=== PATIENT | male | born 1965 | race Two or more races ===

== ENCOUNTER 2021-07-28 19:17 | Emergency (ER) | payer SELFPAY ==
[~2021-07-28] VITALS: Ht 170.2 cm; Wt 77.0 kg
[2021-07-28] MEDS ORDERED: TETANUS, DIPHTHERIA, PERTUSSIS VAC/PF 0.5ML (>10YR OLD) IM ONE (20:30)
[2021-07-28] MEDS ORDERED: ACETAMINOPHEN 325MG TABLET PO ONE (20:30)
[2021-07-28] MEDS ORDERED: BACITRACIN ZINC OINT UDPKT TOP ONE (20:30)
[2021-07-28 21:26] LABS: BASOPHILS % 1.2 % (0.0-2.0); EOSINOPHILS % 1.9 % (0.0-5.0); HEMATOCRIT. 39.8 % (42.0-52.0); HEMOGLOBIN. 13.5 g/dL (14.0-18.0); LYMPHOCYTES % 31.8 % (20.0-50.0); MEAN CORPUSCULAR HEMOGLOBIN 28.6 pg (28.0-32.0); MEAN CORPUSCULAR VOLUME 84.4 fL (80.0-94.0); MEAN PLATELET VOLUME 8.5 fl (7.4-10.4); MONOCYTES % 9.9 % (2.0-8.0); NEUTROPHILS % 55.2 % (40.0-76.0); PLATELET 272 x1000/uL (130-400); RED BLOOD CELL COUNT 4.71 mill/uL (4.7-6.1); RED CELL DISTRIBUTION WIDTH 14.5 % (11.6-14.6)
[2021-07-28 21:34] LABS: CHLORIDE 106 mEq/L (98-107)
[2021-07-28] MEDS ORDERED: HALOPERIDOL LACTATE 5MG/ML VIAL IM ONE (23:30)
[2021-07-28] MEDS ORDERED: DIPHENHYDRAMINE 50MG/ML VIAL IM ONE (23:30)
[2021-07-28] MEDS ORDERED: LORAZEPAM 2MG/ML CPJ IM ONE (23:30)
[2021-07-29 00:33] LABS: *AMPHETAMINES SCREEN URINE NEGATIVE (NEGATIVE); *BARBITURATES SCREEN URINE NEGATIVE (NEGATIVE); *BENZODIAZEPINES SCREEN URINE NEGATIVE (NEGATIVE)
[2021-07-29 00:34] LABS: *COCAINE SCREEN URINE NEGATIVE (NEGATIVE); CANNABINOID URINE SCREEN PRESUMTIVE POSITIVE (NEGATIVE); METHADONE URINE SCREEN NEGATIVE (NEGATIVE); OPIATES URINE SCREEN NEGATIVE (NEGATIVE); PHENCYCLIDINE URINE SCREEN NEGATIVE (NEGATIVE)
[2021-07-29] MEDS ORDERED: SODIUM CHLORIDE 0.9% 1,000 ML IV ONE (00:45)
[2021-07-29] MEDS: OLANZAPINE 5MG TABLET PO SCH ×3 (09:59→21:48)
[2021-07-29] MEDS: DIVALPROEX SODIUM 500MG DR TABLET PO SCH ×2 (10:00→17:00)
[2021-07-29] MEDS ORDERED: QUETIAPINE FUMARATE 50MG TABLET PO SCH (21:00)
[2021-07-30] MEDS: DIVALPROEX SODIUM 500MG DR TABLET PO SCH (09:42)
[2021-07-30 13:28] VITALS: BP 110/74
== END 2021-07-30 13:57 | disposition home or self-care (01) ==
LOC: ER 19:17
DX: S09.8XXA Other specified injuries of head, initial encounter (principal); S00.81XA Abrasion of other part of head, initial encounter; R45.850 Homicidal ideations; R45.851 Suicidal ideations; F12.90 Cannabis use, unspecified, uncomplicated; J44.9 Chronic obstructive pulmonary disease, unspecified; F32.9 Major depressive disorder, single episode, unspecified; F20.9 Schizophrenia, unspecified; W22.09XA Striking against other stationary object, initial encounter; Y93.01 Activity, walking, marching and hiking; Y92.9 Unspecified place or not applicable; Z59.00 Homelessness unspecified
CPT/HCPCS: 36415; 70450; 80053; 80305; 80320; 85025; 90471; 90715; 96360; 96372; 99285; J1200; J1630; J2060; J7030; G0480